=== PATIENT | male | born 1945 | race Caucasian/White ===

== ENCOUNTER 2021-11-09 17:14 | Inpatient (IN) ==
[2021-11-09] MEDS ORDERED: Ketoconazole 2% CRM 15 GM TUBE TP PRN (21:11)
[2021-11-09] MEDS ORDERED: Patient Taking Own Medication 1 EACH TP PRN (21:22)
[2021-11-09] MEDS ORDERED: BETAMETHASONE 0.05% TP PRN (21:24)
[2021-11-09] MEDS: Apixaban 5 MG TABLET PO SCH (22:42)
[2021-11-09] MEDS: rOPINIRole 0.25 MG TABLET PO SCH (22:43)
[2021-11-09] MEDS: Carbidopa/Levodopa ER 50/200 TABLET PO SCH (22:43)
[2021-11-09] MEDS: traZODone 50 MG TABLET PO SCH (22:43)
[2021-11-10] MEDS: Multivit/Ca/Min/Fe/FA 1 TAB TABLET PO SCH (01:00)
[2021-11-10] MEDS: *HR* OxyCODONE Immed Rel 5 MG TABLET PO PRN ×3 (01:58→23:37)
[2021-11-10] MEDS: Levothyroxine 25 MCG TABLET PO SCH (05:43)
[2021-11-10 06:36] LABS: Basophils % 0.5 %; Eosinophils # 0.3 K/mcL (0.0-0.6); Eosinophils % 3.2 %; Hematocrit 41.1 % (37.5-50.1); Hemoglobin 13.4 g/dL (12.9-16.9); Immature Granulocytes % 0.5 % (0-4); Lymphocytes # 2.1 K/mcL (0.6-4.6); Lymphocytes % 25.9 %; Mean Corpuscular HGB Conc 32.6 g/dL (31.6-35.5); Mean Corpuscular Hemoglobin 30.7 pg (28.0-33.3); Mean Corpuscular Volume 94.1 fL (83.0-100.0); Mean Platelet Volume 8.9 fL (9.4-12.4); Monocytes # 0.8 K/mcL (0.0-1.3); Monocytes % 9.6 %; Neutrophils # 4.8 K/mcL (1.6-8.9); Platelet Count 254 K/mcL (140-400); Red Blood Count 4.37 M/mcL (4.19-5.50); Red Cell Distribution Width 12.9 % (11.5-14.5); Segmented Neutrophils % 60.3 %; White Blood Count 7.9 K/mcL (4.3-11.1)
[2021-11-10 07:08] LABS: BUN/Creatinine Ratio 22 (6-26); Blood Urea Nitrogen 21 mg/dL (8-23); Calcium 8.8 mg/dL (8.6-10.3); Carbon Dioxide 26 mEq/L (23-29); Chloride 105 mEq/L (98-107); Glucose 117 mg/dL (70-105); Osmolality,Calculated 288 (280-300); Potassium 3.6 mEq/L (3.5-5.1); Sodium 137 mEq/L (136-145); eGFR For African Americans > 60 (> 60); eGFR For Non-African Americans > 60 (> 60)
[2021-11-10] MEDS: Apixaban 5 MG TABLET PO SCH ×2 (10:42→22:01)
[2021-11-10] MEDS: Carbidopa/Levodopa ER 50/200 TABLET PO SCH ×2 (10:42→22:01)
[2021-11-10] MEDS: Fenofibrate 54 MG TABLET PO SCH (13:49)
[2021-11-10] MEDS: FLUoxetine 20 MG CAPSULE PO SCH (13:49)
[2021-11-10] MEDS: Melatonin 3 MG TABLET PO PRN (22:01)
[2021-11-10] MEDS: rOPINIRole 0.25 MG TABLET PO SCH (22:01)
[2021-11-10] MEDS: traZODone 50 MG TABLET PO SCH (22:01)
[2021-11-11] MEDS: Levothyroxine 25 MCG TABLET PO SCH (06:27)
[2021-11-11] MEDS: Aspirin 81 MG TAB.CHEW PO SCH (08:49)
[2021-11-11] MEDS: Carbidopa/Levodopa ER 50/200 TABLET PO SCH ×2 (08:49→19:45)
[2021-11-11] MEDS: Apixaban 5 MG TABLET PO SCH ×2 (08:49→19:44)
[2021-11-11] MEDS: Fenofibrate 54 MG TABLET PO SCH (12:25)
[2021-11-11] MEDS: Multivit/Ca/Min/Fe/FA 1 TAB TABLET PO SCH (12:25)
[2021-11-11] MEDS: FLUoxetine 20 MG CAPSULE PO SCH (12:25)
[2021-11-11] MEDS: rOPINIRole 0.25 MG TABLET PO SCH (19:44)
[2021-11-11] MEDS: traZODone 50 MG TABLET PO SCH (19:44)
[2021-11-11] MEDS: Melatonin 3 MG TABLET PO PRN (19:45)
[2021-11-11] MEDS: Triamcinolone Acet 0.1% CRM 15 GM TUBE TP PRN (19:46)
[2021-11-12] MEDS: Levothyroxine 25 MCG TABLET PO SCH (05:29)
[2021-11-12] MEDS: *HR* OxyCODONE Immed Rel 5 MG TABLET PO PRN (05:43)
[2021-11-12] MEDS: Aspirin 81 MG TAB.CHEW PO SCH (09:27)
[2021-11-12] MEDS: Carbidopa/Levodopa ER 50/200 TABLET PO SCH ×2 (09:28→19:40)
[2021-11-12] MEDS: Apixaban 5 MG TABLET PO SCH ×2 (09:28→19:37)
[2021-11-12] MEDS ORDERED: Dextrose Gel 15 GM/37.5 ML TUBE PO PRN ×2 (09:38)
[2021-11-12] MEDS ORDERED: *HR* Dextrose 50 % in Water (Syg) 50 ML SYRINGE IVP PRN (09:38)
[2021-11-12] MEDS ORDERED: D5% in Water 1,000 ML IVC PRN (09:38)
[2021-11-12] MEDS: Fenofibrate 54 MG TABLET PO SCH (12:44)
[2021-11-12] MEDS: Multivit/Ca/Min/Fe/FA 1 TAB TABLET PO SCH (12:45)
[2021-11-12] MEDS: FLUoxetine 20 MG CAPSULE PO SCH (12:45)
[2021-11-12] MEDS: Insulin LISPRO 300 UNITS/3 ML VIAL SUBQ SCH ×2 (13:03→17:11)
[2021-11-12] MEDS: Melatonin 3 MG TABLET PO PRN (19:37)
[2021-11-12] MEDS: traZODone 50 MG TABLET PO SCH (19:37)
[2021-11-12] MEDS: rOPINIRole 0.25 MG TABLET PO SCH (19:37)
[2021-11-13] MEDS: Levothyroxine 25 MCG TABLET PO SCH (05:28)
[2021-11-13] MEDS: Insulin LISPRO 300 UNITS/3 ML VIAL SUBQ SCH ×3 (07:13→17:32)
[2021-11-13] MEDS: Triamcinolone Acet 0.1% CRM 15 GM TUBE TP PRN (10:07)
[2021-11-13] MEDS: Furosemide 20 MG TABLET PO SCH (10:08)
[2021-11-13] MEDS: Fenofibrate 54 MG TABLET PO SCH (10:08)
[2021-11-13] MEDS: Aspirin 81 MG TAB.CHEW PO SCH (10:08)
[2021-11-13] MEDS: Carbidopa/Levodopa ER 50/200 TABLET PO SCH ×2 (10:08→22:43)
[2021-11-13] MEDS: Multivit/Ca/Min/Fe/FA 1 TAB TABLET PO SCH (10:08)
[2021-11-13] MEDS: Apixaban 5 MG TABLET PO SCH ×2 (10:08→22:43)
[2021-11-13] MEDS: FLUoxetine 20 MG CAPSULE PO SCH (12:27)
[2021-11-13] MEDS: traZODone 50 MG TABLET PO SCH (22:43)
[2021-11-13] MEDS: Melatonin 3 MG TABLET PO PRN (22:43)
[2021-11-13] MEDS: rOPINIRole 0.25 MG TABLET PO SCH (22:43)
[2021-11-14] MEDS: Levothyroxine 25 MCG TABLET PO SCH (06:28)
[2021-11-14] MEDS: Insulin LISPRO 300 UNITS/3 ML VIAL SUBQ SCH ×3 (10:16→16:37)
[2021-11-14] MEDS: Multivit/Ca/Min/Fe/FA 1 TAB TABLET PO SCH (10:25)
[2021-11-14] MEDS: FLUoxetine 20 MG CAPSULE PO SCH (10:25)
[2021-11-14] MEDS: Fenofibrate 54 MG TABLET PO SCH ×2 (10:25→10:26)
[2021-11-14] MEDS: Aspirin 81 MG TAB.CHEW PO SCH (10:25)
[2021-11-14] MEDS: Furosemide 20 MG TABLET PO SCH (10:27)
[2021-11-14] MEDS: Apixaban 5 MG TABLET PO SCH ×2 (10:43→20:26)
[2021-11-14] MEDS: Carbidopa/Levodopa ER 50/200 TABLET PO SCH ×2 (10:43→20:26)
[2021-11-14] MEDS: rOPINIRole 0.25 MG TABLET PO SCH (20:26)
[2021-11-14] MEDS: traZODone 50 MG TABLET PO SCH (20:26)
[2021-11-14] MEDS: Melatonin 3 MG TABLET PO PRN (20:30)
[2021-11-14] MEDS: *HR* OxyCODONE Immed Rel 5 MG TABLET PO PRN (21:44)
[2021-11-15] MEDS: Levothyroxine 25 MCG TABLET PO SCH (05:15)
[2021-11-15] MEDS: Insulin LISPRO 300 UNITS/3 ML VIAL SUBQ SCH ×3 (07:36→16:42)
[2021-11-15] MEDS: Furosemide 20 MG TABLET PO SCH (08:08)
[2021-11-15] MEDS: Aspirin 81 MG TAB.CHEW PO SCH (08:09)
[2021-11-15] MEDS: Apixaban 5 MG TABLET PO SCH ×2 (08:11→21:27)
[2021-11-15] MEDS: Carbidopa/Levodopa ER 50/200 TABLET PO SCH ×2 (08:11→21:27)
[2021-11-15 11:25] LABS: Estimated Average Glucose 148 mg/dl; Hemoglobin A1C 6.8 %
[2021-11-15] MEDS: Multivit/Ca/Min/Fe/FA 1 TAB TABLET PO SCH (11:59)
[2021-11-15] MEDS: FLUoxetine 20 MG CAPSULE PO SCH (11:59)
[2021-11-15] MEDS: rOPINIRole 0.25 MG TABLET PO SCH (21:26)
[2021-11-15] MEDS: traZODone 50 MG TABLET PO SCH (21:27)
[2021-11-16] MEDS: Levothyroxine 25 MCG TABLET PO SCH (06:02)
[2021-11-16] MEDS: Insulin LISPRO 300 UNITS/3 ML VIAL SUBQ SCH ×3 (07:10→17:06)
[2021-11-16 07:24] LABS: Hemoglobin 13.2 g/dL (12.9-16.9); Mean Corpuscular Hemoglobin 31.2 pg (28.0-33.3); Mean Corpuscular Volume 94.6 fL (83.0-100.0); Mean Platelet Volume 9.1 fL (9.4-12.4); Platelet Count 239 K/mcL (140-400); Red Blood Count 4.23 M/mcL (4.19-5.50); Red Cell Distribution Width 13.5 % (11.5-14.5); White Blood Count 6.2 K/mcL (4.3-11.1)
[2021-11-16 07:52] LABS: BUN/Creatinine Ratio 26 (6-26); Blood Urea Nitrogen 32 mg/dL (8-23); Calcium 8.9 mg/dL (8.6-10.3); Carbon Dioxide 28 mEq/L (23-29); Chloride 105 mEq/L (98-107); Glucose 105 mg/dL (70-105); Osmolality,Calculated 297 (280-300); Potassium 3.7 mEq/L (3.5-5.1); Sodium 140 mEq/L (136-145); eGFR For African Americans > 60 (> 60); eGFR For Non-African Americans 58 (> 60)
[2021-11-16] MEDS: Aspirin 81 MG TAB.CHEW PO SCH (09:59)
[2021-11-16] MEDS: Furosemide 20 MG TABLET PO SCH (09:59)
[2021-11-16] MEDS: Apixaban 5 MG TABLET PO SCH ×2 (09:59→21:47)
[2021-11-16] MEDS: Carbidopa/Levodopa ER 50/200 TABLET PO SCH ×2 (09:59→21:47)
[2021-11-16] MEDS: FLUoxetine 20 MG CAPSULE PO SCH (12:24)
[2021-11-16] MEDS: Fenofibrate 54 MG TABLET PO SCH (12:24)
[2021-11-16] MEDS: Multivit/Ca/Min/Fe/FA 1 TAB TABLET PO SCH (12:24)
[2021-11-16] MEDS: Melatonin 3 MG TABLET PO PRN (21:47)
[2021-11-16] MEDS: traZODone 50 MG TABLET PO SCH (21:47)
[2021-11-16] MEDS: rOPINIRole 0.25 MG TABLET PO SCH (21:47)
[2021-11-16 22:59] LABS: Bilirubin,Urine Negative (Negative); Blood,Urine Negative (Negative); Clarity,Urine Clear (Clear); Color,Urine Yellow (Yellow); Glucose,Urine (UA) Normal (Normal); Ketones,Urine Negative (Negative); Leukocyte Esterase,Urine Negative (Negative); Nitrite,Urine Negative (Negative); Protein,Urine Negative (Neg-Trace); Urobilinogen,Urine Normal (Normal)
[2021-11-17] MEDS: Levothyroxine 25 MCG TABLET PO SCH (05:20)
[2021-11-17] MEDS: Insulin LISPRO 300 UNITS/3 ML VIAL SUBQ SCH ×3 (09:35→17:37)
[2021-11-17] MEDS: Aspirin 81 MG TAB.CHEW PO SCH (10:04)
[2021-11-17] MEDS: Carbidopa/Levodopa ER 50/200 TABLET PO SCH ×2 (10:04→20:16)
[2021-11-17] MEDS: Furosemide 20 MG TABLET PO SCH (10:04)
[2021-11-17] MEDS: Apixaban 5 MG TABLET PO SCH ×2 (10:04→20:16)
[2021-11-17] MEDS: Triamcinolone Acet 0.1% CRM 15 GM TUBE TP PRN (10:06)
[2021-11-17] MEDS: Multivit/Ca/Min/Fe/FA 1 TAB TABLET PO SCH (12:14)
[2021-11-17] MEDS: FLUoxetine 20 MG CAPSULE PO SCH (12:14)
[2021-11-17] MEDS: Fenofibrate 54 MG TABLET PO SCH (12:14)
[2021-11-17] MEDS: traZODone 50 MG TABLET PO SCH (20:16)
[2021-11-17] MEDS: Melatonin 3 MG TABLET PO PRN (20:16)
[2021-11-17] MEDS: rOPINIRole 0.25 MG TABLET PO SCH (20:16)
[2021-11-17] MEDS: *HR* OxyCODONE Immed Rel 5 MG TABLET PO PRN (23:04)
[2021-11-18] MEDS: Levothyroxine 25 MCG TABLET PO SCH (05:17)
[2021-11-18] MEDS: Insulin LISPRO 300 UNITS/3 ML VIAL SUBQ SCH ×3 (07:09→16:29)
[2021-11-18] MEDS: Aspirin 81 MG TAB.CHEW PO SCH (07:50)
[2021-11-18] MEDS: Furosemide 20 MG TABLET PO SCH (07:50)
[2021-11-18] MEDS: Carbidopa/Levodopa ER 50/200 TABLET PO SCH ×2 (07:55→20:05)
[2021-11-18] MEDS: Apixaban 5 MG TABLET PO SCH ×2 (07:55→20:05)
[2021-11-18] MEDS: Acetaminophen 325 MG TABLET PO PRN (08:01)
[2021-11-18] MEDS: Multivit/Ca/Min/Fe/FA 1 TAB TABLET PO SCH (11:30)
[2021-11-18] MEDS: Fenofibrate 54 MG TABLET PO SCH (11:30)
[2021-11-18] MEDS: FLUoxetine 20 MG CAPSULE PO SCH (11:30)
[2021-11-18] MEDS ORDERED: Benzonatate 100 MG CAPSULE PO PRN (13:34)
[2021-11-18] MEDS: rOPINIRole 0.25 MG TABLET PO SCH (23:14)
[2021-11-18] MEDS: traZODone 50 MG TABLET PO SCH (23:14)
[2021-11-19] MEDS: Levothyroxine 25 MCG TABLET PO SCH (05:34)
[2021-11-19] MEDS: Insulin LISPRO 300 UNITS/3 ML VIAL SUBQ SCH ×3 (07:20→15:47)
[2021-11-19] MEDS: Aspirin 81 MG TAB.CHEW PO SCH (07:34)
[2021-11-19] MEDS: Carbidopa/Levodopa ER 50/200 TABLET PO SCH ×2 (07:34→21:58)
[2021-11-19] MEDS: *HR* OxyCODONE Immed Rel 5 MG TABLET PO PRN ×2 (07:34→22:04)
[2021-11-19] MEDS: Apixaban 5 MG TABLET PO SCH ×2 (07:34→21:58)
[2021-11-19] MEDS: Furosemide 20 MG TABLET PO SCH (07:34)
[2021-11-19] MEDS: Fenofibrate 54 MG TABLET PO SCH (11:54)
[2021-11-19] MEDS: FLUoxetine 20 MG CAPSULE PO SCH (11:54)
[2021-11-19] MEDS: Multivit/Ca/Min/Fe/FA 1 TAB TABLET PO SCH (11:54)
[2021-11-19] MEDS: Melatonin 3 MG TABLET PO PRN (21:58)
[2021-11-19] MEDS: rOPINIRole 0.25 MG TABLET PO SCH (21:58)
[2021-11-19] MEDS: traZODone 50 MG TABLET PO SCH (21:58)
[2021-11-20] MEDS: Levothyroxine 25 MCG TABLET PO SCH (05:38)
[2021-11-20] MEDS: Insulin LISPRO 300 UNITS/3 ML VIAL SUBQ SCH ×3 (07:53→16:39)
[2021-11-20 08:26] LABS: Hematocrit 38.7 % (37.5-50.1); Hemoglobin 12.7 g/dL (12.9-16.9); Mean Corpuscular HGB Conc 32.8 g/dL (31.6-35.5); Mean Corpuscular Hemoglobin 31.3 pg (28.0-33.3); Mean Corpuscular Volume 95.3 fL (83.0-100.0); Mean Platelet Volume 9.2 fL (9.4-12.4); Platelet Count 197 K/mcL (140-400); Red Blood Count 4.06 M/mcL (4.19-5.50); Red Cell Distribution Width 13.7 % (11.5-14.5)
[2021-11-20] MEDS: Aspirin 81 MG TAB.CHEW PO SCH (08:41)
[2021-11-20] MEDS: Furosemide 20 MG TABLET PO SCH (08:41)
[2021-11-20 08:42] LABS: Calcium 8.7 mg/dL (8.6-10.3); Potassium 3.8 mEq/L (3.5-5.1)
[2021-11-20] MEDS: Apixaban 5 MG TABLET PO SCH ×2 (08:48→20:38)
[2021-11-20] MEDS: Carbidopa/Levodopa ER 50/200 TABLET PO SCH ×2 (08:48→20:38)
[2021-11-20] MEDS: FLUoxetine 20 MG CAPSULE PO SCH (11:56)
[2021-11-20] MEDS: Fenofibrate 54 MG TABLET PO SCH (11:56)
[2021-11-20] MEDS: Multivit/Ca/Min/Fe/FA 1 TAB TABLET PO SCH (11:56)
[2021-11-20] MEDS: Budesonide/Formoterol 160/4.5 1 PUFF INH IH SCH (20:37)
[2021-11-20] MEDS: rOPINIRole 0.25 MG TABLET PO SCH (20:39)
[2021-11-20] MEDS: traZODone 50 MG TABLET PO SCH (20:39)
[2021-11-20] MEDS: Melatonin 3 MG TABLET PO PRN (20:39)
[2021-11-20] MEDS: *HR* OxyCODONE Immed Rel 5 MG TABLET PO PRN (20:40)
[2021-11-21] MEDS: *HR* OxyCODONE Immed Rel 5 MG TABLET PO PRN ×2 (02:18→09:56)
[2021-11-21] MEDS: Levothyroxine 25 MCG TABLET PO SCH (05:28)
[2021-11-21] MEDS: Insulin LISPRO 300 UNITS/3 ML VIAL SUBQ SCH ×3 (07:20→16:29)
[2021-11-21] MEDS: Furosemide 20 MG TABLET PO SCH (08:35)
[2021-11-21] MEDS: Aspirin 81 MG TAB.CHEW PO SCH (08:35)
[2021-11-21] MEDS: Carbidopa/Levodopa ER 50/200 TABLET PO SCH ×2 (08:41→22:41)
[2021-11-21] MEDS: Apixaban 5 MG TABLET PO SCH ×2 (08:41→19:47)
[2021-11-21] MEDS: Budesonide/Formoterol 160/4.5 1 PUFF INH IH SCH ×2 (09:15→22:16)
[2021-11-21] MEDS: Fenofibrate 54 MG TABLET PO SCH (11:51)
[2021-11-21] MEDS: FLUoxetine 20 MG CAPSULE PO SCH (11:51)
[2021-11-21] MEDS: Multivit/Ca/Min/Fe/FA 1 TAB TABLET PO SCH (11:51)
[2021-11-21] MEDS: traZODone 50 MG TABLET PO SCH (19:47)
[2021-11-21] MEDS: Melatonin 3 MG TABLET PO PRN (19:47)
[2021-11-21] MEDS: rOPINIRole 0.25 MG TABLET PO SCH (19:47)
[2021-11-21] MEDS: Triamcinolone Acet 0.1% CRM 15 GM TUBE TP PRN (23:40)
[2021-11-22] MEDS: Acetaminophen 325 MG TABLET PO PRN (00:21)
[2021-11-22] MEDS: Levothyroxine 25 MCG TABLET PO SCH (05:24)
[2021-11-22] MEDS: Insulin LISPRO 300 UNITS/3 ML VIAL SUBQ SCH ×3 (07:18→16:33)
[2021-11-22] MEDS: Apixaban 5 MG TABLET PO SCH ×2 (08:07→20:38)
[2021-11-22] MEDS: Furosemide 20 MG TABLET PO SCH (08:07)
[2021-11-22] MEDS: Aspirin 81 MG TAB.CHEW PO SCH (08:07)
[2021-11-22] MEDS: Carbidopa/Levodopa ER 50/200 TABLET PO SCH ×2 (08:07→20:56)
[2021-11-22] MEDS: Budesonide/Formoterol 160/4.5 1 PUFF INH IH SCH ×2 (10:20→20:30)
[2021-11-22] MEDS: Fenofibrate 54 MG TABLET PO SCH (11:56)
[2021-11-22] MEDS: Multivit/Ca/Min/Fe/FA 1 TAB TABLET PO SCH (11:56)
[2021-11-22] MEDS: FLUoxetine 20 MG CAPSULE PO SCH (11:56)
[2021-11-22] MEDS: Melatonin 3 MG TABLET PO PRN (20:38)
[2021-11-22] MEDS: Clotrimazole 1% CRM 15 GM TUBE TP SCH (20:38)
[2021-11-22] MEDS: Sennosides/Docusate Sodium TABLET PO SCH (20:38)
[2021-11-22] MEDS: *HR* OxyCODONE Immed Rel 5 MG TABLET PO PRN (20:38)
[2021-11-22] MEDS: traZODone 50 MG TABLET PO SCH (20:58)
[2021-11-22] MEDS: rOPINIRole 0.25 MG TABLET PO SCH (20:58)
[2021-11-23] MEDS: Levothyroxine 25 MCG TABLET PO SCH (05:50)
[2021-11-23] MEDS: Insulin LISPRO 300 UNITS/3 ML VIAL SUBQ SCH ×3 (07:16→16:04)
[2021-11-23] MEDS: Carbidopa/Levodopa ER 50/200 TABLET PO SCH ×2 (07:46→19:28)
[2021-11-23] MEDS: Aspirin 81 MG TAB.CHEW PO SCH (07:46)
[2021-11-23] MEDS: Clotrimazole 1% CRM 15 GM TUBE TP SCH ×2 (07:47→20:38)
[2021-11-23] MEDS: Sennosides/Docusate Sodium TABLET PO SCH ×2 (07:47→19:28)
[2021-11-23] MEDS: Furosemide 20 MG TABLET PO SCH (07:47)
[2021-11-23] MEDS: Apixaban 5 MG TABLET PO SCH ×2 (07:51→19:28)
[2021-11-23] MEDS: *HR* OxyCODONE Immed Rel 5 MG TABLET PO PRN ×2 (07:51→19:27)
[2021-11-23] MEDS: Budesonide/Formoterol 160/4.5 1 PUFF INH IH SCH ×2 (09:24→21:38)
[2021-11-23] MEDS: FLUoxetine 20 MG CAPSULE PO SCH (12:14)
[2021-11-23] MEDS: Multivit/Ca/Min/Fe/FA 1 TAB TABLET PO SCH (12:14)
[2021-11-23] MEDS: Fenofibrate 54 MG TABLET PO SCH (12:14)
[2021-11-23] MEDS: rOPINIRole 0.25 MG TABLET PO SCH (19:27)
[2021-11-23] MEDS: traZODone 50 MG TABLET PO SCH (19:28)
[2021-11-23] MEDS: Melatonin 3 MG TABLET PO PRN (20:38)
[2021-11-23 23:23] LABS: BUN/Creatinine Ratio 17 (6-26); Blood Urea Nitrogen 22 mg/dL (8-23); Calcium 8.3 mg/dL (8.6-10.3); Carbon Dioxide 24 mEq/L (23-29); Chloride 106 mEq/L (98-107); Glucose 136 mg/dL (70-105); Magnesium 1.6 mg/dL (1.6-2.6); Osmolality,Calculated 291 (280-300); Potassium 3.7 mEq/L (3.5-5.1); Sodium 138 mEq/L (136-145); eGFR For African Americans > 60 (> 60); eGFR For Non-African Americans 54 (> 60)
[2021-11-24 03:13] VITALS: BP 116/65; PULSE 48; RESP 19; TEMP 97.7; O2SAT 93
[2021-11-24] MEDS: Levothyroxine 25 MCG TABLET PO SCH (05:55)
== END 2021-11-24 06:44 | disposition short-term general hospital (02) ==
LOC: INPPIK 18:40
PROVIDERS: ADMIT Family Medicine; ATTEND Family Medicine

== ENCOUNTER 2021-11-27 18:38 | Inpatient (IN) ==
[2021-11-27] MEDS ORDERED: Ketoconazole 2% CRM 15 GM TUBE TP PRN (23:57)
[2021-11-28] MEDS ORDERED: CICLOPIROX OLAMINE TP PRN (00:12)
[2021-11-28] MEDS ORDERED: Triamcinolone Acet 0.1% CRM 15 GM TUBE TP PRN (00:13)
[2021-11-28] MEDS ORDERED: Naloxone 0.4 MG/ML INJ IVP PRN (00:21)
[2021-11-28] MEDS ORDERED: *HR* OxyCODONE/APAP 5/325 TABLET PO ONE (01:44)
[2021-11-28] MEDS: Levothyroxine 25 MCG TABLET PO SCH (05:33)
[2021-11-28] MEDS: Apixaban 5 MG TABLET PO SCH ×2 (08:34→21:15)
[2021-11-28] MEDS: Carbidopa/Levodopa ER 50/200 TABLET PO SCH ×2 (08:34→21:15)
[2021-11-28] MEDS: Aspirin Enteric Coated 81 MG Tablet PO SCH (08:34)
[2021-11-28] MEDS: Multivit/Ca/Min/Fe/FA 1 TAB TABLET PO SCH (11:54)
[2021-11-28] MEDS: FLUoxetine 20 MG CAPSULE PO SCH (11:54)
[2021-11-28] MEDS ORDERED: *HR* Dextrose 50 % in Water (Syg) 50 ML SYRINGE IVP PRN (14:43)
[2021-11-28] MEDS ORDERED: Dextrose Gel 15 GM/37.5 ML TUBE PO PRN ×2 (14:43)
[2021-11-28] MEDS ORDERED: D5% in Water 1,000 ML IVC PRN (14:43)
[2021-11-28] MEDS: Insulin LISPRO 300 UNITS/3 ML VIAL SUBQ SCH ×2 (16:34→21:16)
[2021-11-28] MEDS: Melatonin 3 MG TABLET PO PRN (21:15)
[2021-11-28] MEDS: traZODone 50 MG TABLET PO SCH (21:35)
[2021-11-28] MEDS: rOPINIRole 0.25 MG TABLET PO SCH (21:35)
[2021-11-29] MEDS: *HR* HYDROcodone/Acet 10/325 mg TABLET PO PRN ×3 (00:35→21:34)
[2021-11-29 01:20] LABS: BUN/Creatinine Ratio 22 (6-26); Blood Urea Nitrogen 26 mg/dL (8-23); Calcium 8.9 mg/dL (8.6-10.3); Carbon Dioxide 25 mEq/L (23-29); Chloride 102 mEq/L (98-107); Glucose 182 mg/dL (70-105); Magnesium 1.6 mg/dL (1.6-2.6); Osmolality,Calculated 289 (280-300); Sodium 135 mEq/L (136-145); eGFR For African Americans > 60 (> 60); eGFR For Non-African Americans > 60 (> 60)
[2021-11-29] MEDS: Levothyroxine 25 MCG TABLET PO SCH (06:10)
[2021-11-29] MEDS: Insulin LISPRO 300 UNITS/3 ML VIAL SUBQ SCH ×4 (07:17→21:35)
[2021-11-29] MEDS: Aspirin Enteric Coated 81 MG Tablet PO SCH (07:48)
[2021-11-29] MEDS: Carbidopa/Levodopa ER 50/200 TABLET PO SCH ×2 (07:48→21:34)
[2021-11-29] MEDS: Apixaban 5 MG TABLET PO SCH ×2 (07:48→21:34)
[2021-11-29] MEDS: FLUoxetine 20 MG CAPSULE PO SCH (12:10)
[2021-11-29] MEDS: Multivit/Ca/Min/Fe/FA 1 TAB TABLET PO SCH (12:10)
[2021-11-29] MEDS: Melatonin 3 MG TABLET PO PRN (21:34)
[2021-11-29] MEDS: rOPINIRole 0.25 MG TABLET PO SCH (21:34)
[2021-11-29] MEDS: traZODone 50 MG TABLET PO SCH (21:34)
[2021-11-30] MEDS: Levothyroxine 25 MCG TABLET PO SCH (06:02)
[2021-11-30] MEDS: Insulin LISPRO 300 UNITS/3 ML VIAL SUBQ SCH ×4 (07:12→21:20)
[2021-11-30] MEDS: Apixaban 5 MG TABLET PO SCH ×2 (09:05→21:18)
[2021-11-30] MEDS: Carbidopa/Levodopa ER 50/200 TABLET PO SCH ×2 (09:05→21:18)
[2021-11-30] MEDS: Aspirin Enteric Coated 81 MG Tablet PO SCH (09:05)
[2021-11-30] MEDS: *HR* HYDROcodone/Acet 10/325 mg TABLET PO PRN ×2 (09:05→21:18)
[2021-11-30] MEDS: FLUoxetine 20 MG CAPSULE PO SCH (12:43)
[2021-11-30] MEDS: Multivit/Ca/Min/Fe/FA 1 TAB TABLET PO SCH (12:43)
[2021-11-30] MEDS: Melatonin 3 MG TABLET PO PRN (21:18)
[2021-11-30] MEDS: rOPINIRole 0.25 MG TABLET PO SCH (21:18)
[2021-11-30] MEDS: traZODone 50 MG TABLET PO SCH (21:18)
[2021-12-01] MEDS: Levothyroxine 25 MCG TABLET PO SCH (06:25)
[2021-12-01] MEDS: Insulin LISPRO 300 UNITS/3 ML VIAL SUBQ SCH ×4 (06:53→20:46)
[2021-12-01] MEDS: Carbidopa/Levodopa ER 50/200 TABLET PO SCH ×2 (08:04→20:45)
[2021-12-01] MEDS: Apixaban 5 MG TABLET PO SCH ×2 (08:04→20:46)
[2021-12-01] MEDS: Aspirin Enteric Coated 81 MG Tablet PO SCH (08:04)
[2021-12-01] MEDS: Multivit/Ca/Min/Fe/FA 1 TAB TABLET PO SCH (11:57)
[2021-12-01] MEDS: FLUoxetine 20 MG CAPSULE PO SCH (11:57)
[2021-12-01] MEDS: traZODone 50 MG TABLET PO SCH (20:46)
[2021-12-01] MEDS: rOPINIRole 0.25 MG TABLET PO SCH (20:46)
[2021-12-01] MEDS: *HR* HYDROcodone/Acet 10/325 mg TABLET PO PRN (20:54)
[2021-12-01] MEDS: Melatonin 3 MG TABLET PO PRN (20:54)
[2021-12-02] MEDS: *HR* HYDROcodone/Acet 10/325 mg TABLET PO PRN ×2 (04:39→21:42)
[2021-12-02] MEDS: Levothyroxine 25 MCG TABLET PO SCH (05:47)
[2021-12-02] MEDS: Insulin LISPRO 300 UNITS/3 ML VIAL SUBQ SCH ×4 (08:56→22:27)
[2021-12-02] MEDS: Carbidopa/Levodopa ER 50/200 TABLET PO SCH ×2 (09:00→21:43)
[2021-12-02] MEDS: Apixaban 5 MG TABLET PO SCH ×2 (09:00→21:42)
[2021-12-02] MEDS: Aspirin Enteric Coated 81 MG Tablet PO SCH (09:00)
[2021-12-02] MEDS: FLUoxetine 20 MG CAPSULE PO SCH (14:07)
[2021-12-02] MEDS: Multivit/Ca/Min/Fe/FA 1 TAB TABLET PO SCH (14:08)
[2021-12-02] MEDS: traZODone 50 MG TABLET PO SCH (21:42)
[2021-12-02] MEDS: Melatonin 3 MG TABLET PO PRN (21:43)
[2021-12-02] MEDS: rOPINIRole 0.25 MG TABLET PO SCH (22:28)
[2021-12-03] MEDS: Levothyroxine 25 MCG TABLET PO SCH (05:38)
[2021-12-03] MEDS: Aspirin Enteric Coated 81 MG Tablet PO SCH (08:13)
[2021-12-03] MEDS: Insulin LISPRO 300 UNITS/3 ML VIAL SUBQ SCH ×4 (08:13→22:21)
[2021-12-03] MEDS: Carbidopa/Levodopa ER 50/200 TABLET PO SCH ×2 (08:14→20:15)
[2021-12-03] MEDS: Apixaban 5 MG TABLET PO SCH ×2 (08:14→20:15)
[2021-12-03] MEDS: FLUoxetine 20 MG CAPSULE PO SCH (11:39)
[2021-12-03] MEDS: Multivit/Ca/Min/Fe/FA 1 TAB TABLET PO SCH (11:39)
[2021-12-03 12:31] LABS: Basophils % 0.4 %; Eosinophils # 0.3 K/mcL (0.0-0.6); Eosinophils % 3.6 %; Hematocrit 37.9 % (37.5-50.1); Hemoglobin 12.1 g/dL (12.9-16.9); Immature Granulocytes % 0.4 % (0-4); Lymphocytes # 1.2 K/mcL (0.6-4.6); Mean Corpuscular HGB Conc 31.9 g/dL (31.6-35.5); Mean Corpuscular Volume 97.2 fL (83.0-100.0); Mean Platelet Volume 8.5 fL (9.4-12.4); Monocytes # 0.7 K/mcL (0.0-1.3); Monocytes % 8.9 %; Neutrophils # 5.5 K/mcL (1.6-8.9); Platelet Count 259 K/mcL (140-400); Red Cell Distribution Width 13.8 % (11.5-14.5); Segmented Neutrophils % 71.7 %; White Blood Count 7.7 K/mcL (4.3-11.1)
[2021-12-03] MEDS: Melatonin 3 MG TABLET PO PRN (20:15)
[2021-12-03] MEDS: rOPINIRole 0.25 MG TABLET PO SCH (20:15)
[2021-12-03] MEDS: traZODone 50 MG TABLET PO SCH (20:15)
[2021-12-03] MEDS: Acetaminophen 325 MG TABLET PO PRN (20:17)
[2021-12-04] MEDS: Levothyroxine 25 MCG TABLET PO SCH (05:11)
[2021-12-04] MEDS: Acetaminophen 325 MG TABLET PO PRN (05:11)
[2021-12-04 07:22] LABS: Hematocrit 37.8 % (37.5-50.1); Hemoglobin 12.1 g/dL (12.9-16.9); Mean Corpuscular Hemoglobin 30.9 pg (28.0-33.3); Mean Corpuscular Volume 96.4 fL (83.0-100.0); Mean Platelet Volume 8.7 fL (9.4-12.4); Platelet Count 277 K/mcL (140-400); Red Blood Count 3.92 M/mcL (4.19-5.50); Red Cell Distribution Width 13.8 % (11.5-14.5); White Blood Count 6.9 K/mcL (4.3-11.1)
[2021-12-04 08:18] LABS: BUN/Creatinine Ratio 19 (6-26); Blood Urea Nitrogen 19 mg/dL (8-23); Calcium 8.9 mg/dL (8.6-10.3); Carbon Dioxide 28 mEq/L (23-29); Chloride 107 mEq/L (98-107); Glucose 108 mg/dL (70-105); Magnesium 1.7 mg/dL (1.6-2.6); Osmolality,Calculated 295 (280-300); Potassium 3.8 mEq/L (3.5-5.1); Sodium 141 mEq/L (136-145); eGFR For African Americans > 60 (> 60); eGFR For Non-African Americans > 60 (> 60)
[2021-12-04] MEDS: Carbidopa/Levodopa ER 50/200 TABLET PO SCH ×2 (10:06→21:44)
[2021-12-04] MEDS: Apixaban 5 MG TABLET PO SCH ×2 (10:06→21:18)
[2021-12-04] MEDS: Aspirin Enteric Coated 81 MG Tablet PO SCH (10:06)
[2021-12-04] MEDS: *HR* HYDROcodone/Acet 10/325 mg TABLET PO PRN ×2 (10:21→21:17)
[2021-12-04] MEDS: Insulin LISPRO 300 UNITS/3 ML VIAL SUBQ SCH ×4 (10:22→21:04)
[2021-12-04] MEDS: Multivit/Ca/Min/Fe/FA 1 TAB TABLET PO SCH (12:14)
[2021-12-04] MEDS: FLUoxetine 20 MG CAPSULE PO SCH (12:14)
[2021-12-04] MEDS: traZODone 50 MG TABLET PO SCH (21:17)
[2021-12-04] MEDS: Melatonin 3 MG TABLET PO PRN (21:17)
[2021-12-04] MEDS: rOPINIRole 0.25 MG TABLET PO SCH (21:45)
[2021-12-05] MEDS: *HR* HYDROcodone/Acet 10/325 mg TABLET PO PRN ×3 (03:01→21:43)
[2021-12-05] MEDS: Levothyroxine 25 MCG TABLET PO SCH (06:15)
[2021-12-05] MEDS: FLUoxetine 20 MG CAPSULE PO SCH (11:09)
[2021-12-05] MEDS: Apixaban 5 MG TABLET PO SCH ×2 (11:09→21:43)
[2021-12-05] MEDS: Aspirin Enteric Coated 81 MG Tablet PO SCH (11:09)
[2021-12-05] MEDS: Insulin LISPRO 300 UNITS/3 ML VIAL SUBQ SCH ×4 (11:10→21:42)
[2021-12-05] MEDS: Multivit/Ca/Min/Fe/FA 1 TAB TABLET PO SCH (11:11)
[2021-12-05] MEDS: Carbidopa/Levodopa ER 50/200 TABLET PO SCH ×2 (11:11→21:43)
[2021-12-05] MEDS: rOPINIRole 0.25 MG TABLET PO SCH (21:43)
[2021-12-05] MEDS: Melatonin 3 MG TABLET PO PRN (21:43)
[2021-12-05] MEDS: traZODone 50 MG TABLET PO SCH (21:43)
[2021-12-06] MEDS: Levothyroxine 25 MCG TABLET PO SCH (06:06)
[2021-12-06] MEDS: Aspirin Enteric Coated 81 MG Tablet PO SCH (09:41)
[2021-12-06] MEDS: Sennosides/Docusate Sodium TABLET PO SCH ×2 (09:41→21:52)
[2021-12-06] MEDS: *HR* HYDROcodone/Acet 10/325 mg TABLET PO PRN ×2 (09:41→21:51)
[2021-12-06] MEDS: Apixaban 5 MG TABLET PO SCH ×2 (09:48→21:51)
[2021-12-06] MEDS: Carbidopa/Levodopa ER 50/200 TABLET PO SCH ×2 (09:48→21:52)
[2021-12-06] MEDS: FLUoxetine 20 MG CAPSULE PO SCH (12:19)
[2021-12-06] MEDS: Insulin LISPRO 300 UNITS/3 ML VIAL SUBQ SCH ×4 (12:19→21:58)
[2021-12-06] MEDS: Multivit/Ca/Min/Fe/FA 1 TAB TABLET PO SCH (12:20)
[2021-12-06] MEDS: Melatonin 3 MG TABLET PO PRN (21:52)
[2021-12-06] MEDS: traZODone 50 MG TABLET PO SCH (21:55)
[2021-12-06] MEDS: rOPINIRole 0.25 MG TABLET PO SCH (21:55)
[2021-12-07] MEDS: Levothyroxine 25 MCG TABLET PO SCH (05:49)
[2021-12-07] MEDS: *HR* HYDROcodone/Acet 10/325 mg TABLET PO PRN ×2 (05:52→20:20)
[2021-12-07] MEDS: Aspirin Enteric Coated 81 MG Tablet PO SCH (08:12)
[2021-12-07] MEDS: Sennosides/Docusate Sodium TABLET PO SCH ×2 (08:12→20:21)
[2021-12-07] MEDS: Carbidopa/Levodopa ER 50/200 TABLET PO SCH ×2 (08:19→20:23)
[2021-12-07] MEDS: Apixaban 5 MG TABLET PO SCH ×2 (08:19→20:20)
[2021-12-07] MEDS: Insulin LISPRO 300 UNITS/3 ML VIAL SUBQ SCH ×4 (08:20→20:23)
[2021-12-07] MEDS: Multivit/Ca/Min/Fe/FA 1 TAB TABLET PO SCH (17:31)
[2021-12-07] MEDS: FLUoxetine 20 MG CAPSULE PO SCH (17:31)
[2021-12-07] MEDS ORDERED: FLUoxetine 20 MG CAPSULE PO ONE (17:33)
[2021-12-07] MEDS: Melatonin 3 MG TABLET PO PRN (20:20)
[2021-12-07] MEDS: traZODone 50 MG TABLET PO SCH (20:20)
[2021-12-07] MEDS: rOPINIRole 0.25 MG TABLET PO SCH (20:20)
[2021-12-08] MEDS: Levothyroxine 25 MCG TABLET PO SCH (05:38)
[2021-12-08] MEDS: Aspirin Enteric Coated 81 MG Tablet PO SCH (08:03)
[2021-12-08] MEDS: Apixaban 5 MG TABLET PO SCH ×2 (08:04→22:09)
[2021-12-08] MEDS: Sennosides/Docusate Sodium TABLET PO SCH ×2 (08:04→22:09)
[2021-12-08] MEDS: Insulin LISPRO 300 UNITS/3 ML VIAL SUBQ SCH ×4 (08:04→22:10)
[2021-12-08] MEDS: Carbidopa/Levodopa ER 50/200 TABLET PO SCH ×2 (08:04→22:08)
[2021-12-08] MEDS: FLUoxetine 20 MG CAPSULE PO SCH (12:30)
[2021-12-08] MEDS: Multivit/Ca/Min/Fe/FA 1 TAB TABLET PO SCH (12:30)
[2021-12-08] MEDS ORDERED: *HR* LORazepam 0.5 MG TABLET PO PRN (15:11)
[2021-12-08] MEDS: *HR* HYDROcodone/Acet 10/325 mg TABLET PO PRN (22:08)
[2021-12-08] MEDS: traZODone 50 MG TABLET PO SCH (22:08)
[2021-12-08] MEDS: Melatonin 3 MG TABLET PO PRN (22:09)
[2021-12-08] MEDS: rOPINIRole 0.25 MG TABLET PO SCH (22:09)
[2021-12-09] MEDS: Levothyroxine 25 MCG TABLET PO SCH (06:41)
[2021-12-09] MEDS: Insulin LISPRO 300 UNITS/3 ML VIAL SUBQ SCH ×4 (07:32→19:52)
[2021-12-09] MEDS: *HR* HYDROcodone/Acet 10/325 mg TABLET PO PRN ×2 (09:04→19:51)
[2021-12-09] MEDS: Aspirin Enteric Coated 81 MG Tablet PO SCH (09:04)
[2021-12-09] MEDS: Apixaban 5 MG TABLET PO SCH ×2 (09:04→19:52)
[2021-12-09] MEDS: Sennosides/Docusate Sodium TABLET PO SCH ×2 (09:04→19:51)
[2021-12-09] MEDS: Carbidopa/Levodopa ER 50/200 TABLET PO SCH ×2 (09:05→19:52)
[2021-12-09] MEDS: FLUoxetine 20 MG CAPSULE PO SCH (11:12)
[2021-12-09] MEDS: Multivit/Ca/Min/Fe/FA 1 TAB TABLET PO SCH (11:12)
[2021-12-09] MEDS: traZODone 50 MG TABLET PO SCH (21:49)
[2021-12-09] MEDS: rOPINIRole 0.25 MG TABLET PO SCH (21:49)
[2021-12-10] MEDS: Acetaminophen 325 MG TABLET PO PRN (02:12)
[2021-12-10] MEDS: Levothyroxine 25 MCG TABLET PO SCH (05:48)
[2021-12-10] MEDS: Insulin LISPRO 300 UNITS/3 ML VIAL SUBQ SCH ×4 (07:07→20:26)
[2021-12-10] MEDS: Carbidopa/Levodopa ER 50/200 TABLET PO SCH ×2 (09:11→20:34)
[2021-12-10] MEDS: Aspirin Enteric Coated 81 MG Tablet PO SCH (09:11)
[2021-12-10] MEDS: Sennosides/Docusate Sodium TABLET PO SCH ×2 (09:12→20:34)
[2021-12-10] MEDS: Apixaban 5 MG TABLET PO SCH ×2 (09:12→20:33)
[2021-12-10] MEDS: FLUoxetine 20 MG CAPSULE PO SCH (12:00)
[2021-12-10] MEDS: Multivit/Ca/Min/Fe/FA 1 TAB TABLET PO SCH (12:00)
[2021-12-10] MEDS: rOPINIRole 0.25 MG TABLET PO SCH (21:43)
[2021-12-10] MEDS: traZODone 50 MG TABLET PO SCH (21:43)
[2021-12-10] MEDS: Melatonin 3 MG TABLET PO PRN (23:46)
[2021-12-11] MEDS: Levothyroxine 25 MCG TABLET PO SCH (06:10)
[2021-12-11] MEDS: Apixaban 5 MG TABLET PO SCH ×2 (08:36→22:07)
[2021-12-11] MEDS: Sennosides/Docusate Sodium TABLET PO SCH ×2 (08:37→21:05)
[2021-12-11] MEDS: Aspirin Enteric Coated 81 MG Tablet PO SCH (08:37)
[2021-12-11] MEDS: Carbidopa/Levodopa ER 50/200 TABLET PO SCH ×2 (08:37→22:08)
[2021-12-11] MEDS: Insulin LISPRO 300 UNITS/3 ML VIAL SUBQ SCH ×4 (08:46→22:08)
[2021-12-11] MEDS: *HR* HYDROcodone/Acet 10/325 mg TABLET PO PRN (08:46)
[2021-12-11] MEDS: FLUoxetine 20 MG CAPSULE PO SCH (11:37)
[2021-12-11] MEDS: Multivit/Ca/Min/Fe/FA 1 TAB TABLET PO SCH (11:37)
[2021-12-11] MEDS: Melatonin 3 MG TABLET PO PRN (21:05)
[2021-12-11] MEDS: traZODone 50 MG TABLET PO SCH (22:08)
[2021-12-11] MEDS: rOPINIRole 0.25 MG TABLET PO SCH (22:08)
[2021-12-12] MEDS: *HR* HYDROcodone/Acet 10/325 mg TABLET PO PRN ×3 (05:49→22:14)
[2021-12-12] MEDS: Levothyroxine 25 MCG TABLET PO SCH (05:49)
[2021-12-12] MEDS: Aspirin Enteric Coated 81 MG Tablet PO SCH (07:55)
[2021-12-12] MEDS: Sennosides/Docusate Sodium TABLET PO SCH ×2 (07:55→20:11)
[2021-12-12] MEDS: Apixaban 5 MG TABLET PO SCH ×2 (07:56→20:12)
[2021-12-12] MEDS: Carbidopa/Levodopa ER 50/200 TABLET PO SCH ×2 (07:56→20:11)
[2021-12-12] MEDS: Insulin LISPRO 300 UNITS/3 ML VIAL SUBQ SCH ×4 (07:57→20:56)
[2021-12-12 09:32] LABS: Hematocrit 43.7 % (37.5-50.1); Hemoglobin 13.7 g/dL (12.9-16.9); Mean Corpuscular HGB Conc 31.4 g/dL (31.6-35.5); Mean Corpuscular Volume 95.6 fL (83.0-100.0); Mean Platelet Volume 8.8 fL (9.4-12.4); Platelet Count 297 K/mcL (140-400); Red Blood Count 4.57 M/mcL (4.19-5.50); Red Cell Distribution Width 13.8 % (11.5-14.5); White Blood Count 8.3 K/mcL (4.3-11.1)
[2021-12-12 10:03] LABS: BUN/Creatinine Ratio 15 (6-26); Blood Urea Nitrogen 16 mg/dL (8-23); Calcium 9.4 mg/dL (8.6-10.3); Carbon Dioxide 29 mEq/L (23-29); Chloride 102 mEq/L (98-107); Glucose 151 mg/dL (70-105); Osmolality,Calculated 294 (280-300); Potassium 4.1 mEq/L (3.5-5.1); Sodium 140 mEq/L (136-145); eGFR For African Americans > 60 (> 60); eGFR For Non-African Americans > 60 (> 60)
[2021-12-12] MEDS: FLUoxetine 20 MG CAPSULE PO SCH (12:36)
[2021-12-12] MEDS: Multivit/Ca/Min/Fe/FA 1 TAB TABLET PO SCH (12:37)
[2021-12-12] MEDS: Melatonin 3 MG TABLET PO PRN (20:13)
[2021-12-12] MEDS: traZODone 50 MG TABLET PO SCH (22:13)
[2021-12-12] MEDS: rOPINIRole 0.25 MG TABLET PO SCH (22:13)
[2021-12-13] MEDS: Levothyroxine 25 MCG TABLET PO SCH (05:47)
[2021-12-13] MEDS: Insulin LISPRO 300 UNITS/3 ML VIAL SUBQ SCH ×4 (07:41→20:49)
[2021-12-13] MEDS: Sennosides/Docusate Sodium TABLET PO SCH ×2 (08:55→19:47)
[2021-12-13] MEDS: Carbidopa/Levodopa ER 50/200 TABLET PO SCH ×2 (08:55→19:47)
[2021-12-13] MEDS: Apixaban 5 MG TABLET PO SCH ×2 (08:55→19:47)
[2021-12-13] MEDS: Aspirin Enteric Coated 81 MG Tablet PO SCH (08:56)
[2021-12-13] MEDS: FLUoxetine 20 MG CAPSULE PO SCH (13:27)
[2021-12-13] MEDS: Multivit/Ca/Min/Fe/FA 1 TAB TABLET PO SCH (13:27)
[2021-12-13] MEDS: rOPINIRole 0.25 MG TABLET PO SCH (19:47)
[2021-12-13] MEDS: Melatonin 3 MG TABLET PO PRN (19:47)
[2021-12-13] MEDS: traZODone 50 MG TABLET PO SCH (19:47)
[2021-12-14] MEDS: *HR* HYDROcodone/Acet 10/325 mg TABLET PO PRN ×3 (00:52→21:48)
[2021-12-14] MEDS: Levothyroxine 25 MCG TABLET PO SCH (05:24)
[2021-12-14] MEDS: Insulin LISPRO 300 UNITS/3 ML VIAL SUBQ SCH ×4 (09:25→20:37)
[2021-12-14] MEDS: Sennosides/Docusate Sodium TABLET PO SCH ×2 (10:08→20:37)
[2021-12-14] MEDS: Carbidopa/Levodopa ER 50/200 TABLET PO SCH ×2 (10:08→21:58)
[2021-12-14] MEDS: Aspirin Enteric Coated 81 MG Tablet PO SCH (10:09)
[2021-12-14] MEDS: Apixaban 5 MG TABLET PO SCH ×2 (10:09→20:37)
[2021-12-14] MEDS: FLUoxetine 20 MG CAPSULE PO SCH (11:22)
[2021-12-14] MEDS: Multivit/Ca/Min/Fe/FA 1 TAB TABLET PO SCH (11:22)
[2021-12-14] MEDS: rOPINIRole 0.25 MG TABLET PO SCH (21:48)
[2021-12-14] MEDS: traZODone 50 MG TABLET PO SCH (21:48)
[2021-12-15] MEDS: Levothyroxine 25 MCG TABLET PO SCH (05:45)
[2021-12-15 08:07] VITALS: BP 125/79; PULSE 71; RESP 16; TEMP 97.9; O2SAT 93
[2021-12-15] MEDS: Aspirin Enteric Coated 81 MG Tablet PO SCH (08:23)
[2021-12-15] MEDS: Sennosides/Docusate Sodium TABLET PO SCH (08:23)
[2021-12-15] MEDS: Insulin LISPRO 300 UNITS/3 ML VIAL SUBQ SCH (08:24)
[2021-12-15] MEDS: Carbidopa/Levodopa ER 50/200 TABLET PO SCH (08:26)
[2021-12-15] MEDS: Apixaban 5 MG TABLET PO SCH (08:26)
== END 2021-12-15 11:00 | disposition home health service (06) | DRG 309 ==
LOC: INPPIK 23:46
PROVIDERS: ADMIT Internal Medicine; ATTEND Internal Medicine